=== PATIENT | male | born 1955 | race Hispanic/Latino ===

== ENCOUNTER 2021-07-04 13:17 | Inpatient (IN) | payer BC ==
[~2021-07-04] VITALS: Ht 177.8 cm; Wt 95.8 kg
[2021-07-04 13:47] LABS: BASOPHILS % (AUTO) 0.9 % (0.0-5.0); EOSINOPHILS % (AUTO) 1.5 % (0.0-8.0); HEMATOCRIT 41.5 % (42-54); LYMPHOCYTES % (AUTO) 31.6 % (21.0-51.0); MEAN CORPUSCULAR HEMOGLOBIN 32.3 pg (27.0-33.0); MEAN CORPUSCULAR HGB CONC 34.2 g/dL (32.0-36.0); MEAN CORPUSCULAR VOLUME 94.3 fL (79-99); MONOCYTES % (AUTO) 10.6 % (3.0-13.0); PLATELET COUNT (AUTO) 233 K/uL (130-400); RED CELL DISTRIBUTION WIDTH 13.5 % (11.0-15.5); WHITE BLOOD COUNT (AUTO) 5.5 K/uL (4.8-10.8)
[2021-07-04 13:58] LABS: PROTHROMBIN TIME 10.9 SEC (9.6-11.6)
[2021-07-04 13:59] LABS: PARTIAL THROMBOPLASTIN TIME 25.9 SEC (26.3-35.5)
[2021-07-04 14:04] LABS: ALBUMIN 3.7 g/dL (3.5-5.0); BILIRUBIN,TOTAL 0.4 mg/dL (0.2-1.0); CREATININE 1.1 mg/dL (0.5-1.5); TOTAL PROTEIN, SERUM 7.1 g/dL (6.0-8.3)
[2021-07-04 14:14] LABS: B-TYPE NATRIURETIC PEPTIDE 66 pg/mL (0-100)
[2021-07-04] MEDS ORDERED: NITROGLYCERIN 1GM OINT 1 INCH/1GM TD ONE ×2 (14:52→15:00)
[2021-07-04] MEDS ORDERED: ENOXAPARIN SODIUM 100 MG/1 ML SQ ONE (14:52)
[2021-07-04] MEDS ORDERED: ASPIRIN 325MG TAB ONE (14:52)
[2021-07-04] MEDS ORDERED: MIDAZOLAM HCL 1 MG/ML 2ML VIAL ONE (14:58)
[2021-07-04] MEDS ORDERED: HEPARIN 10,000 UNIT/10ML (1,000 UNIT/ML) VIAL ONE (14:58)
[2021-07-04] MEDS ORDERED: IOHEXOL-350 50ML VIAL IV ONE (14:58)
[2021-07-04] MEDS ORDERED: NITROGLYCERIN 2 MG VIAL IV ONE (14:58)
[2021-07-04] MEDS ORDERED: IOHEXOL 350 MG/ML 100ML INFUS..BTL IV ONE (14:58)
[2021-07-04] MEDS ORDERED: LIDOCAINE HCL 400MG/20ML VIAL ONE (14:59)
[2021-07-04] MEDS ORDERED: FENTANYL CITRATE PF 50 MCG/1 ML 2ML VIAL ONE (14:59)
[2021-07-04 15:00] LABS: APPEARANCE,URINE Clear (CLEAR); BILIRUBIN,URINE Negative (NEGATIVE); COLOR,URINE Yellow (YELLOW); GLUCOSE, URINE (UA) Negative (NEGATIVE); KETONES,URINE Negative (NEGATIVE); LEUKOCYTE ESTERASE ,URINE Negative (NEGATIVE); NITRATE,URINE Negative (NEGATIVE); OCCULT BLOOD,URINE Negative (NEGATIVE); PH,URINE 5.5 (5.0-8.0); PROTEIN,URINE Negative (NEGATIVE); UROBILINOGEN,URINE 0.2 mg/dL (0.2-1.0)
[2021-07-04] MEDS ORDERED: HEPARIN 5,000 UNIT VIAL ONE (15:00)
[2021-07-04] MEDS ORDERED: ENOXAPARIN SODIUM 100 MG/1 ML SQ SCH (15:00)
[2021-07-04] MEDS ORDERED: ASPIRIN 325MG TAB PO ONE (15:00)
[2021-07-04] MEDS ORDERED: NICARDIPINE 25MG INJ IV ONE (15:04)
[2021-07-04] MEDS ORDERED: PRASUGREL HCL 10 MG TABLET ONE (15:38)
[2021-07-04] MEDS ORDERED: HYDRALAZINE 20MG/ML VIAL IV PRN (17:00)
[2021-07-04] MEDS ORDERED: ONDANSETRON 4MG INJ IVP SCH (17:00)
[2021-07-04] MEDS ORDERED: LOSARTAN 50 MG TABLET PO SCH ×2 (17:00→20:00)
[2021-07-04] MEDS ORDERED: ONDANSETRON 4MG INJ IVP PRN (17:00)
[2021-07-04] MEDS ORDERED: 0.9%NACL 1000ML 1,000 ML IV SCH (17:00)
[2021-07-04] MEDS ORDERED: ICOS1CAP2 PO (19:40)
[2021-07-04] MEDS ORDERED: METF-526 PO (19:40)
[2021-07-04] MEDS ORDERED: LEVO137C4 PO (19:41)
[2021-07-04] MEDS ORDERED: LOSA100T58 PO (19:42)
[2021-07-04] MEDS ORDERED: MVIT PO (19:43)
[2021-07-04] MEDS ORDERED: ROSU10TA28 PO (19:44)
[2021-07-04 20:00] VITALS: BP 148/91
[2021-07-04] MEDS: METOPROLOL TARTRATE 25 MG TAB PO SCH (20:18)
[2021-07-04 21:00] VITALS: BP 140/89
[2021-07-04] MEDS ORDERED: ATORVASTATIN 40 MG TABLET PO SCH (21:00)
[2021-07-04 22:00] VITALS: BP 121/72
[2021-07-04 23:00] VITALS: BP 127/88
[2021-07-05] VITALS (9 sets, daily range): BP systolic 114–138; BP diastolic 76–90
[2021-07-05 04:00] LABS: HEMATOCRIT 42.9 % (42-54); MEAN CORPUSCULAR HEMOGLOBIN 31.5 pg (27.0-33.0); MEAN CORPUSCULAR HGB CONC 33.6 g/dL (32.0-36.0); MEAN CORPUSCULAR VOLUME 93.9 fL (79-99); RED BLOOD CELL COUNT(AUTO) 4.57 MIL/uL (4.50-6.20); RED CELL DISTRIBUTION WIDTH 13.5 % (11.0-15.5); WHITE BLOOD COUNT (AUTO) 6.4 K/uL (4.8-10.8)
[2021-07-05 04:07] LABS: HEMOGLOBIN A1C 6.5 % (4.0-6.0)
[2021-07-05 04:20] LABS: CREATININE 0.9 mg/dL (0.5-1.5); POTASSIUM 3.9 mmol/L (3.5-5.1)
[2021-07-05] MEDS: METOPROLOL TARTRATE 25 MG TAB PO SCH (08:43)
[2021-07-05] MEDS ORDERED: ASPIRIN 81MG CHEW TAB PO SCH (09:00)
[2021-07-05] MEDS ORDERED: LOSARTAN 50 MG TABLET PO SCH (09:00)
[2021-07-05] MEDS ORDERED: PRASUGREL HCL 10 MG TABLET PO SCH (09:00)
[2021-07-05] MEDS ORDERED: PANTOPRAZOLE 40 MG TAB DR PO SCH (09:00)
[2021-07-05] MEDS ORDERED: PANT20TA PO (11:07)
== END 2021-07-05 12:27 | disposition home or self-care (01) | DRG 246 ==
LOC: EDH 13:17 → 2DH 16:33
PROVIDERS: ADMIT Internal Medicine; ATTEND Internal Medicine
PROC: 027034Z Dilation of Coronary Artery, One Artery with Drug-eluting Intraluminal Device, Percutaneous Approach (ICD-10-PCS; principal; 2021-07-04)
PROC: 4A023N7 Measurement of Cardiac Sampling and Pressure, Left Heart, Percutaneous Approach (ICD-10-PCS; 2021-07-04)
PROC: B2111ZZ Fluoroscopy of Multiple Coronary Arteries using Low Osmolar Contrast (ICD-10-PCS; 2021-07-04)
DX: I21.19 ST elevation (STEMI) myocardial infarction involving other coronary artery of inferior wall (principal); I50.31 Acute diastolic (congestive) heart failure; E66.01 Morbid (severe) obesity due to excess calories; I25.10 Atherosclerotic heart disease of native coronary artery without angina pectoris; K21.9 Gastro-esophageal reflux disease without esophagitis; E78.5 Hyperlipidemia, unspecified; E11.9 Type 2 diabetes mellitus without complications; E78.00 Pure hypercholesterolemia, unspecified; E03.9 Hypothyroidism, unspecified; Z68.30 Body mass index [BMI] 30.0-30.9, adult; Z88.5 Allergy status to narcotic agent; I11.0 Hypertensive heart disease with heart failure
CPT/HCPCS: 36415; 71045; 80048; 80053; 80061; 81003; 82550; 83036; 83880; 84484; 85025; 85027; 85610; 85730; 93005; 93306; 93458; 99156; 99157; 99291; C1769; C1887; C1894; C9600; J1644; J1650; J2250; J3010; J3490; Q9967

== ENCOUNTER → 2022-11-06 | Outpatient (CLI) | payer MEDICARE ==
[~2022-11-06] MED LIST: ICOS1CAP2 PO; LEVO137C4 PO; METF-526 PO; MVIT PO; PANT20TA PO
[2022-11-06 09:19] LABS: HEMATOCRIT 42.1 % (42-54); MEAN CORPUSCULAR HEMOGLOBIN 31.2 pg (27.0-33.0); MEAN CORPUSCULAR VOLUME 94.6 fL (79-99); RED BLOOD CELL COUNT(AUTO) 4.45 MIL/uL (4.50-6.20); WHITE BLOOD COUNT (AUTO) 4.7 K/uL (4.8-10.8)
[2022-11-06 09:45] LABS: HEMOGLOBIN A1C 6.2 % (4.0-6.0)
[2022-11-06 10:16] LABS: ALBUMIN 3.1 g/dL (3.5-5.0); POTASSIUM 3.7 mmol/L (3.5-5.1); THYROID STIMULATING HORMONE 4.81 uIU/mL (0.36-3.74); TOTAL PROTEIN, SERUM 6.7 g/dL (6.0-8.3)
== END | disposition home or self-care (01) ==
LOC: LAB 08:25
PROVIDERS: ATTEND Internal Medicine Endocrinology, Diabetes & Metabolism
DX: I10 Essential (primary) hypertension (principal); E11.65 Type 2 diabetes mellitus with hyperglycemia; E78.2 Mixed hyperlipidemia; D51.9 Vitamin B12 deficiency anemia, unspecified
CPT/HCPCS: 36415; 80053; 80061; 82043; 82607; 83036; 84439; 84443; 85027